=== PATIENT | male | born 1950 | race American Indian/Alaskan Native ===

== ENCOUNTER 2016-08-12 07:45 | Emergency (ER) | payer OTHER ==
[2016-08-12 07:56] VITALS: BP 146/104
--- NOTE | 2016-08-12 09:09 | Emergency Department Report ---
ED Back Pain/Injury HPI - General Chief Complaint: Back Pain/Injury Stated Complaint: LOWER BACK PX/L PELVIS PX Time Seen by Provider: 08/12/16 08:09 Source: patient Limitations: No Limitations - History of Present Illness Initial Comments: This is a 65-year-old male well-nourished with nontoxic or ill in appearance but presents with chronic lower back pain that is radiating down to his left lower extremity. Patient stated he has been diagnosed with low back pain with images indicating lumbar spurs for the past 4 years. Patient stated is f/u with his PCP Dr. Jacinto and he also stated that MRI has been taken last thursday and results are still pending. He has an appointment with his PCP next week for results. Denies any injury or trauma to the area. Patient denies any numbness, tingling, nausea, vomiting, chest pain, short of breath, abdominal pain, dysuria , polyuria, foul odor urine, fever, chills, headache, or stiff neck. Patient stated steroids helps his symptoms but denies taking steroids for at least a year. Patient rates pain as 8 out of 10 that is described as aching and sharp. Patient states symptoms are relieved on supine and sitting position. MD Complaint: back pain -: year(s) (4) Similar Symptoms Previously: Yes Radiation: left leg Severity: mild Severity scale (0 -10): 8 Quality: sharp, aching Improves With: supine, sitting upright Worsens With: movement, walking Associated Symptoms: denies other symptoms. denies: confusion, weakness, chest pain, numbness, difficulty walking, cough, difficulty urinating, diaphoresis, incontinence, fever/chills, constipation, headaches, abdominal pain, loss of appetite, malaise, nausea/vomiting, rash, seizure, shortness of breath, syncope - Related Data Home Medications Medication Instructions Recorded Confirmed Last Taken Propranolol HCl 10 mg PO TID 03/11/13 09/20/14 Unknown Tamsulosin [Flomax] 0.8 mg PO QHS 03/11/13 09/20/14 Unknown Cyclobenzaprine [Flexeril 10 MG 10 mg PO TID PRN 09/20/14 09/20/14 Unknown TAB] Duloxetine HCl [Cymbalta] 60 mg PO DAILY 09/20/14 09/20/14 Unknown Meloxicam 15 mg PO QDAY 09/20/14 09/20/14 Unknown OLANzapine [ZyPREXA] 5 mg PO BID 09/20/14 09/20/14 Unknown amLODIPine [Norvasc] 5 mg PO DAILY 09/20/14 09/20/14 Unknown traZODone [Desyrel] 100 mg PO QHS 09/20/14 09/20/14 Unknown Previous Rx's Medication Instructions Recorded Last Taken Type Acetaminophen/Codeine [Tylenol #3] 1 tab PO Q6H PRN #20 tab 10/19/14 Unknown Rx Clindamycin [Clindamycin CAP] 300 mg PO Q6H #40 capsule 10/19/14 Unknown Rx Fluticasone [Flonase] 2 spray NS QDAY #1 bottle 10/19/14 Unknown Rx predniSONE [Deltasone] 20 mg PO QDAY #5 tab 10/19/14 Unknown Rx Meloxicam 15 mg PO QDAY #30 tablet 11/06/14 Unknown Rx traMADol [Ultram] 50 mg PO Q6HR PRN #20 tablet 11/06/14 Unknown Rx predniSONE [Deltasone] 20 mg PO BID #10 tab 08/12/16 Unknown Rx Allergies Allergy/AdvReac Type Severity Reaction Status Date / Time Penicillins Allergy Rash Verified 08/12/16 07:51 Sulfa (Sulfonamide Allergy Rash Verified 08/12/16 07:51 Antibiotics) acetaminophen AdvReac Nausea Verified 08/12/16 07:51 aspirin AdvReac Bleeding Verified 08/12/16 07:51 ibuprofen [From Motrin] AdvReac Bleeding Verified 08/12/16 07:51 ED Review of Systems ROS: Stated complaint: LOWER BACK PX/L PELVIS PX Other details as noted in HPI Constitutional: denies: chills, fever Eyes: denies: eye pain, eye discharge, vision change ENT: denies: ear pain, throat pain Respiratory: denies: cough, shortness of breath, wheezing Cardiovascular: denies: chest pain, palpitations Endocrine: no symptoms reported Gastrointestinal: denies: abdominal pain, nausea, diarrhea Genitourinary: denies: urgency, dysuria Musculoskeletal: denies: back pain, joint swelling, arthralgia Skin: denies: rash, lesions Neurological: denies: headache, weakness, paresthesias Psychiatric: denies: anxiety, depression Hematological/Lymphatic: denies: easy bleeding, easy bruising ED Past Medical Hx - Past Medical History Hx Hypertension: Yes Hx GERD: Yes (HH) Hx Psychiatric Treatment: Yes (schizophrenia, substance abuse) Additional medical history: Enlarged Prostate; High cholesterol, chronic back pain from degenerative disc disease, hiatal hernia. sciatica - Surgical History Additional Surgical History: L rotator cuff - Social History Smoking Status: Former Smoker Substance Use Type: None - Medications Home Medications: Home Medications Medication Instructions Recorded Confirmed Last Taken Type Propranolol HCl 10 mg PO TID 03/11/13 09/20/14 Unknown History Tamsulosin [Flomax] 0.8 mg PO QHS 03/11/13 09/20/14 Unknown History Cyclobenzaprine [Flexeril 10 MG 10 mg PO TID PRN 09/20/14 09/20/14 Unknown History TAB] Duloxetine HCl [Cymbalta] 60 mg PO DAILY 09/20/14 09/20/14 Unknown History Meloxicam 15 mg PO QDAY 09/20/14 09/20/14 Unknown History OLANzapine [ZyPREXA] 5 mg PO BID 09/20/14 09/20/14 Unknown History amLODIPine [Norvasc] 5 mg PO DAILY 09/20/14 09/20/14 Unknown History traZODone [Desyrel] 100 mg PO QHS 09/20/14 09/20/14 Unknown History Acetaminophen/Codeine [Tylenol #3] 1 tab PO Q6H PRN #20 tab 10/19/14 Unknown Rx Clindamycin [Clindamycin CAP] 300 mg PO Q6H #40 capsule 10/19/14 Unknown Rx Fluticasone [Flonase] 2 spray NS QDAY #1 bottle 10/19/14 Unknown Rx predniSONE [Deltasone] 20 mg PO QDAY #5 tab 10/19/14 Unknown Rx Meloxicam 15 mg PO QDAY #30 tablet 11/06/14 Unknown Rx traMADol [Ultram] 50 mg PO Q6HR PRN #20 tablet 11/06/14 Unknown Rx predniSONE [Deltasone] 20 mg PO BID #10 tab 08/12/16 Unknown Rx ED Physical Exam - General Limitations: No Limitations General appearance: alert, in no apparent distress - Head Head exam: Present: atraumatic, normocephalic, normal inspection - Eye Eye exam: Present: normal appearance, PERRL, EOMI. Absent: scleral icterus, conjunctival injection, nystagmus, periorbital swelling, periorbital tenderness - ENT ENT exam: Present: normal exam, normal orophraynx, mucous membranes moist, TM's normal bilaterally, normal external ear exam - Neck Neck exam: Present: normal inspection, full ROM. Absent: tenderness, meningismus, lymphadenopathy, thyromegaly - Respiratory Respiratory exam: Present: normal lung sounds bilaterally. Absent: respiratory distress, wheezes, rales, rhonchi, stridor - Cardiovascular Cardiovascular Exam: Present: regular rate, normal rhythm. Absent: systolic murmur, diastolic murmur, rubs, gallop - GI/Abdominal GI/Abdominal exam: Present: soft, normal bowel sounds. Absent: distended, tenderness, guarding, rebound, rigid, diminished bowel sounds - Rectal Rectal exam: Present: deferred - Extremities Exam Extremities exam: Present: normal inspection, full ROM, normal capillary refill. Absent: tenderness, pedal edema, joint swelling, calf tenderness - Back Exam Back exam: Present: normal inspection, full ROM. Absent: tenderness, CVA tenderness (R), CVA tenderness (L), muscle spasm, paraspinal tenderness, vertebral tenderness, rash noted - Expanded Back Exam Expanded Back exam: Absent: saddle anesthesia Back exam: Negative Straight Leg Raising: Left, Right - Neurological Exam Neurological exam: Present: alert, oriented X3, CN II-XII intact, normal gait - Psychiatric Psychiatric exam: Present: normal affect, normal mood - Skin Skin exam: Present: warm, dry, intact, normal color. Absent: rash ED Course Vital Signs 08/12/16 07:51 Temperature 97.9 F Pulse Rate 101 H Respiratory 17 Rate Blood Pressure 146/104 O2 Sat by Pulse 98 Oximetry - Reevaluation(s) Reevaluation #1: 08/12/16 09:17 Patient is sitting comfortably with no signs of distress. ED Medical Decision Making - Medical Decision Making Ed course:This is a 65-year-old male that presents with chronic lumbar radiculopathy 1- after my physical exam, received Solu-Medrol 40 mg IM by mouth in ED. 2- patient was instructed to follow-up with primary care doctor/orthopedic doctor in 3-5 days for further evaluation and review of MRI results or if symptoms worsen such as bladder or bowel stability, chest pain, short of breath , numbness or tingling sensation in extremities, headache, dizziness, visual changes, nausea vomiting, or abdominal pain, upper back to emergency room as was possible. 3- patient received prednisone at the time of discharge. 4- at time time of discharge, the patient does not seem toxic or ill in appearance. No acute signs of distress noted. Patient agrees to discharge treatment plan of care. No further questions noted by the patient. Critical care attestation.: If time is entered above; I have spent that time in minutes in the direct care of this critically ill patient, excluding procedure time. ED Disposition Clinical Impression: Lumbar radiculopathy, chronic Disposition: DC- TO HOME OR SELFCARE Is pt being admited?: No Does the pt Need Aspirin: No Condition: Stable Instructions: Prednisone (By mouth), Lumbar Radiculopathy (ED), Chronic Back Pain (ED) Additional Instructions: Follow-up with primary care doctor/orthopedic doctor in 3-5 days for further evaluation for results of MRI or if symptoms worsen such as bladder or bowel stability, chest pain, short of breath, numbness or tingling sensation in extremities, headache, dizziness, visual changes, nausea vomiting, or abdominal pain, upper back to emergency room as was possible.. Take prednisone as prescribed. Prescriptions: predniSONE [Deltasone] 20 mg PO BID #10 tab Referrals: PRIMARY CARE, [Primary Care Provider] - 3-5 Days [facility] [Outside] - 3-5 Days [facility] [Outside] - 3-5 Days
== END 2016-08-12 09:27 | disposition home or self-care (01) ==
LOC: ED 07:45
DX: M54.16 Radiculopathy, lumbar region (principal); G89.29 Other chronic pain; K21.9 Gastro-esophageal reflux disease without esophagitis; F20.9 Schizophrenia, unspecified; E78.00 Pure hypercholesterolemia, unspecified; Z87.891 Personal history of nicotine dependence; N40.0 Benign prostatic hyperplasia without lower urinary tract symptoms; Z88.0 Allergy status to penicillin; Z88.2 Allergy status to sulfonamides; Z88.6 Allergy status to analgesic agent
CPT/HCPCS: 96372; 99282; J2920